=== PATIENT | male | born 1970 | race Caucasian/White ===

== ENCOUNTER 2016-06-06 15:06 | Emergency (ER) | payer OTHER ==
[~2016-06-06] VITALS: Ht 195.6 cm; Wt 136.1 kg
[2016-06-06 15:45] VITALS: BP 126/84
== END 2016-06-06 16:49 | disposition left against medical advice (07) ==
LOC: ER 15:08
DX: Z53.21 Procedure and treatment not carried out due to patient leaving prior to being seen by health care provider (principal)
CPT/HCPCS: A4606; Z7610

== ENCOUNTER 2019-05-20 20:42 | Emergency (ER) | payer OTHER ==
[~2019-05-20] VITALS: Ht 195.6 cm; Wt 127.0 kg
--- NOTE | 2019-05-20 20:45 | NUR ---
[id number]. ALCOHOL WITHDRAWAL-TREMORS, ANXIOUS, SOB, CHEST TIGHTNESS ABD PAIN BURNING SENSATION. LAST ALCOHOL USE WEDNESDAY EVENING, PT AWAKE, ALERT, -SOB, NAD NOTED, PLACEDO N MONITOR, VSS, SANDRO DE LA TORRE
[2019-05-20] MEDS: IPRATROPIUM NEB FS 0.5 MG/2.5 ML AMPUL.NEB NEB ONE (21:19)
[2019-05-20] MEDS: ALBUTEROL FS 2.5 MG/3 ML VIAL.NEB NEB ONE (21:20)
[2019-05-20] MEDS ORDERED: ALBUTEROL FS 2.5 MG/3 ML VIAL.NEB ONE (21:23)
[2019-05-20] MEDS ORDERED: IPRATROPIUM NEB FS 0.5 MG/2.5 ML AMPUL.NEB ONE (21:23)
[2019-05-20] MEDS ORDERED: LIDOCAINE VISCOUS 2% UD 15 ML UDC ONE (21:30)
[2019-05-20] MEDS ORDERED: MAG HYDROX/AL HYDROX/SIMETH 30 ML UDC ONE (21:30)
[2019-05-20 21:31] LABS: BASOPHILS % (AUTO) 0.7 % (0.0-2.0); EOSINOPHILS % (AUTO) 0.3 % (0.0-6.0); HEMATOCRIT 41 % (39-51); HEMOGLOBIN 13.6 g/dL (13.5-17.5); LYMPHOCYTES # (AUTO) 1.5 /CMM (0.8-4.8); LYMPHOCYTES % (AUTO) 23.1 % (20.0-44.0); MEAN CORPUSCULAR HGB CONC 33 g/dl (31.0-36.0); MEAN CORPUSCULAR VOLUME 91 fL (80-96); MONOCYTES # (AUTO) 0.6 /CMM (0.1-1.30); MONOCYTES % (AUTO) 9.8 % (2.0-12.0); NEUTROPHILS # (AUTO) 4.2 /CMM (1.8-8.9); NEUTROPHILS % (AUTO) 66.1 % (43.0-81.0); PLATELET COUNT (AUTO) 255 /CMM (150-450); RED BLOOD CELL COUNT(AUTO) 4.47 MIL/uL (4.5-6.0); WHITE BLOOD COUNT (AUTO) 6.3 K/uL (4.3-11.0)
[2019-05-20] MEDS ORDERED: predniSONE 20 MG TABLET ONE (21:31)
[2019-05-20 21:38] LABS: CALCIUM, SERUM 9.6 mg/dL (8.5-10.1); CARBON DIOXIDE 29 mmol/L (21-32); CHLORIDE 99 mmol/L (98-107); CREATININE 0.9 mg/dL (0.6-1.3); GLUCOSE 110 mg/dL (74-106); POTASSIUM 3.9 mmol/L (3.5-5.1); SODIUM SERUM 139 mmol/L (136-145); UREA NITROGEN, BLOOD 6 mg/dL (7-18)
[2019-05-20 21:44] LABS: ALANINE AMINOTRANSFERASE 72 U/L (12-78); ALBUMIN 4.2 g/dL (3.4-5.0); ALKALINE PHOSPHATASE 86 U/L (46-116); ASPARTATE AMINOTRANSFERASE 56 U/L (15-37); BILIRUBIN,DIRECT 0.5 mg/dL (0.0-0.2); BILIRUBIN,TOTAL 2.2 mg/dL (0.2-1.0); TOTAL PROTEIN, SERUM 7.5 g/dL (6.4-8.2)
[2019-05-20] MEDS: LIDOCAINE VISCOUS 2% UD 15 ML UDC MM ONE (21:45)
[2019-05-20] MEDS: MAG HYDROX/AL HYDROX/SIMETH 30 ML UDC PO ONE (21:45)
[2019-05-20] MEDS: predniSONE 20 MG TABLET PO ONE (21:45)
[2019-05-20] MEDS ORDERED: LORAZEPAM 1 MG TABLET ONE (21:46)
[2019-05-20] MEDS: LORAZEPAM 1 MG TABLET PO ONE (21:49)
--- NOTE | 2019-05-20 22:55 | NUR ---
DOMINICK (MOTHER) CONTACT INFORMATION: [phone], WILL TECHNICAL SERVICES CONSULTANT PATIENT WHEN DISCHARGED
[2019-05-20 23:52] VITALS: BP 143/88
--- NOTE | 2019-05-21 00:16 | NUR ---
Patient discharged to home in stable condition. Written and verbal after care instructions given. Patient verbalizes understanding of instruction. IV removed. Catheter intact and site benign. Pressure and 4x4 applied to site. No bleeding noted.
== END 2019-05-21 00:41 | disposition home or self-care (01) ==
LOC: ER 20:43
DX: F10.239 Alcohol dependence with withdrawal, unspecified (principal); J44.1 Chronic obstructive pulmonary disease with (acute) exacerbation; F17.200 Nicotine dependence, unspecified, uncomplicated; Y90.9 Presence of alcohol in blood, level not specified
CPT/HCPCS: 36415; 71045-TC; 80048-TC; 80076-TC; 83690-TC; 84484-TC; 85025-TC

== ENCOUNTER 2020-07-23 09:00 | Emergency (ER) | payer OTHER ==
[~2020-07-23] VITALS: Ht 195.6 cm; Wt 141.1 kg
--- NOTE | 2020-07-23 09:10 | NUR ---
The patient bibs for c/o headache, nausea x few days s/p glf/ head injury. The patient admits to etoh use. Rates headache 5/10. In room air and denies sob. Respiration regular and unlabored. Warm blanket provided for comfort. Attached on a monitor. Will continue to monitor the patient.
[2020-07-23] MEDS ORDERED: ONDANSETRON HCL/PF 4 MG/2 ML VIAL ONE (09:21)
--- NOTE | 2020-07-23 09:27 | NUR ---
ZOFRAN 4 MG GIVEN IV INSTEAD OF PO PER DR WALLACE.
[2020-07-23] MEDS ORDERED: ONDANSETRON 4 MG TAB.RAPDIS PO ONE (09:30)
[2020-07-23] MEDS ORDERED: IV NS 0.9% 1,000 ML BAG IV ONE (09:30)
[2020-07-23 09:31] LABS: BASOPHILS % (AUTO) 0.7 % (0.0-2.0); EOSINOPHILS % (AUTO) 2.4 % (0.0-6.0); HEMATOCRIT 47 % (39-51); HEMOGLOBIN 15.7 g/dL (13.5-17.5); LYMPHOCYTES # (AUTO) 1.8 /CMM (0.8-4.8); LYMPHOCYTES % (AUTO) 28.4 % (20.0-44.0); MEAN CORPUSCULAR HGB CONC 33 g/dl (31.0-36.0); MEAN CORPUSCULAR VOLUME 96 fL (80-96); MONOCYTES # (AUTO) 0.5 /CMM (0.1-1.30); MONOCYTES % (AUTO) 7.2 % (2.0-12.0); NEUTROPHILS # (AUTO) 3.9 /CMM (1.8-8.9); NEUTROPHILS % (AUTO) 61.3 % (43.0-81.0); PLATELET COUNT (AUTO) 240 /CMM (150-450); RED BLOOD CELL COUNT(AUTO) 4.94 MIL/uL (4.5-6.0); WHITE BLOOD COUNT (AUTO) 6.4 K/uL (4.3-11.0)
--- NOTE | 2020-07-23 09:40 | NUR ---
patient wheeled to ct
--- NOTE | 2020-07-23 09:48 | NUR ---
patient came back from ct
--- NOTE | 2020-07-23 09:54 | NUR ---
called RT for breathing Tx.
[2020-07-23] MEDS ORDERED: ALBUTEROL FS 2.5 MG/3 ML VIAL.NEB ONE (09:59)
[2020-07-23 10:00] LABS: CALCIUM, SERUM 9.5 mg/dL (8.5-10.1); CREATININE 0.9 mg/dL (0.6-1.3); POTASSIUM 3.8 mmol/L (3.5-5.1)
[2020-07-23] MEDS ORDERED: ALBUTEROL FS 2.5 MG/3 ML VIAL.NEB NEB ONE (10:00)
--- NOTE | 2020-07-23 10:01 | NUR ---
RT at bedside for Tx.
[2020-07-23 10:06] LABS: ALBUMIN 3.9 g/dL (3.4-5.0); BILIRUBIN,DIRECT 0.5 mg/dL (0.0-0.2); BILIRUBIN,TOTAL 2.9 mg/dL (0.2-1.0); TOTAL PROTEIN, SERUM 7.8 g/dL (6.4-8.2)
[2020-07-23] MEDS ORDERED: KETOROLAC TROMETHAMINE 15 MG/ML VIAL ONE (10:49)
[2020-07-23] MEDS ORDERED: KETOROLAC TROMETHAMINE INJ 30 MG/ML VIAL IV ONE (11:00)
[2020-07-23] MEDS ORDERED: LORA-259 PO (11:04)
[2020-07-23] MEDS ORDERED: IPRA12.9 INH (11:04)
--- NOTE | 2020-07-23 11:34 | NUR ---
Patient discharged to home in stable condition. Written and verbal after care instructions given. Patient verbalizes understanding of instruction. patient left er in stable condition.
[2020-07-23 11:36] VITALS: BP 136/78
== END 2020-07-23 11:36 | disposition home or self-care (01) ==
LOC: ER 09:00
DX: S00.01XA Abrasion of scalp, initial encounter (principal); S09.8XXA Other specified injuries of head, initial encounter; F10.20 Alcohol dependence, uncomplicated; E80.7 Disorder of bilirubin metabolism, unspecified; R42 Dizziness and giddiness; J45.909 Unspecified asthma, uncomplicated; F17.200 Nicotine dependence, unspecified, uncomplicated; Y90.9 Presence of alcohol in blood, level not specified; Z79.899 Other long term (current) drug therapy; W18.09XA Striking against other object with subsequent fall, initial encounter; Y93.89 Activity, other specified; Y92.89 Other specified places as the place of occurrence of the external cause; Y99.8 Other external cause status
CPT/HCPCS: 36415; 70450; 80048; 80076; 85025; 94640; 96361; 96374; 99285; J1885; J2405; J7030

== ENCOUNTER 2021-04-15 21:55 | Emergency (ER) | payer OTHER ==
[~2021-04-15] VITALS: Ht 188 cm; Wt 95.3 kg
[~2021-04-15 21:55] MED LIST: IPRA12.9 INH; LORA-259 PO
[2021-04-15] MEDS ORDERED: ONDANSETRON HCL/PF 4 MG/2 ML VIAL ONE (22:27)
[2021-04-15] MEDS ORDERED: LORAZEPAM INJ 2 MG/ML VIAL ONE (22:27)
--- NOTE | 2021-04-15 22:27 | NUR ---
PT BIBRA C/O "ALCOHOL WITHDRAWALS" AND LEFT SIDED ABD PAIN WITH N/V/D. PT AAOX4 BREATHING EVENLY AND UNLABORED. PER PT, LAST DRINK WAS 18HRS AGO. UPON ASSESSMENT, PT HAS TREMORS IN HANDS. MD AT BEDSIDE. PT ATTACHED TO MONITOR AND POX. GIVEN BLANKET AND CALL LIGHT WITHIN REACH
[2021-04-15] MEDS: ONDANSETRON HCL/PF 4 MG/2 ML VIAL IVP ONE (22:30)
[2021-04-15] MEDS: LORAZEPAM INJ 2 MG/ML VIAL IV ONE (22:30)
[2021-04-15] MEDS: IV NS 0.9% 1,000 ML BAG IV ONE (22:30)
--- NOTE | 2021-04-15 22:30 | NUR ---
taken to radiology
[2021-04-15 22:51] LABS: BASOPHILS # (AUTO) 0.1 K/uL (0.0-0.2); BASOPHILS % (AUTO) 1.1 % (0.0-2.0); EOSINOPHILS % (AUTO) 0.7 % (0.0-6.0); HEMATOCRIT 44 % (39-51); HEMOGLOBIN 15.2 g/dL (13.5-17.5); LYMPHOCYTES # (AUTO) 1.5 K/uL (0.8-4.8); LYMPHOCYTES % (AUTO) 21.8 % (20.0-44.0); MEAN CORPUSCULAR HGB CONC 35 g/dl (31.0-36.0); MEAN CORPUSCULAR VOLUME 93 fL (80-96); MONOCYTES # (AUTO) 0.5 K/uL (0.1-1.30); MONOCYTES % (AUTO) 7.6 % (2.0-12.0); NEUTROPHILS # (AUTO) 4.9 K/uL (1.8-8.9); NEUTROPHILS % (AUTO) 68.8 % (43.0-81.0); PLATELET COUNT (AUTO) 196 K/uL (150-450); WHITE BLOOD COUNT (AUTO) 7.1 K/uL (4.3-11.0)
[2021-04-15 23:10] LABS: BILIRUBIN,URINE SMALL (NEGATIVE); COLOR,URINE AMBER (YELLOW); LEUKOCYTE ESTERASE ,URINE TRACE (NEGATIVE); NITRITE, URINE POSITIVE (NEGATIVE); PH,URINE 7.5 (5.0-8.0); PROTEIN,URINE 100 mg/dl (NEGATIVE); UGLUCOSE NEGATIVE (NEGATIVE)
[2021-04-15 23:12] LABS: ALBUMIN 3.9 g/dL (3.4-5.0); BILIRUBIN,DIRECT 0.5 mg/dL (0.0-0.2); BILIRUBIN,TOTAL 2.7 mg/dL (0.2-1.0); CALCIUM, SERUM 9.4 mg/dL (8.5-10.1); POTASSIUM 3.8 mmol/L (3.5-5.1); TOTAL PROTEIN, SERUM 7.9 g/dL (6.4-8.2)
--- NOTE | 2021-04-15 23:22 | NUR ---
TAKEN TO CT
[2021-04-15] MEDS ORDERED: ONDA4TAB5 PO (23:34)
[2021-04-15] MEDS ORDERED: CHLO1CAP32 PO (23:34)
[2021-04-15] MEDS ORDERED: CIPR500T5 PO (23:41)
--- NOTE | 2021-04-15 23:43 | NUR ---
Patient discharged to home in stable condition. Written and verbal after care instructions given. Patient verbalizes understanding of instruction. IV removed. Catheter intact and site benign. Pressure and 4x4 applied to site. No bleeding noted. PT ambulatory with a steady gait
[2021-04-15 23:49] VITALS: BP 145/90
[2021-04-16 15:17] LABS: BACTERIA,URINE 2+ /HPF (None Seen); SQUAMOUS EPITHELIAL CELL,UR 1+ /HPF (None Seen); URINE AMORPHOUS URATE Many /HPF (None Seen)
== END 2021-04-15 23:43 | disposition home or self-care (01) ==
LOC: ER 21:57
DX: N39.0 Urinary tract infection, site not specified (principal); F10.239 Alcohol dependence with withdrawal, unspecified; K70.0 Alcoholic fatty liver; R10.12 Left upper quadrant pain; J45.909 Unspecified asthma, uncomplicated; Z79.52 Long term (current) use of systemic steroids; Z79.51 Long term (current) use of inhaled steroids; Y90.0 Blood alcohol level of less than 20 mg/100 ml
CPT/HCPCS: 36415; 74176; 80048; 80076; 80307; 80320; 81001; 83690; 85025; 87086; 87186; 93005; 96361; 96374; 96375; 99285; J2060; J2405; J7030; G0480

== ENCOUNTER 2022-02-21 12:27 | Emergency (ER) | payer OTHER ==
[~2022-02-21] VITALS: Ht 195.6 cm; Wt 113.4 kg
[~2022-02-21 12:27] MED LIST changes: +CHLO1CAP32 PO; +CIPR500T5 PO; +ONDA4TAB5 PO
--- NOTE | 2022-02-21 12:50 | NUR ---
BIBS C/O TREMORS, ABDOMINAL DISCOMFORT, "THROWING UP ALL NIGHT" SINCE YESTERDAY LAST ALCOHOL INTAKE 2 DAYS AGO. AMBULATORY, PLACED ON BED, AAOX4, BREATHING EVEN AND UNLABORED.
--- NOTE | 2022-02-21 13:09 | NUR ---
PATIENT TAKEN TO CT VIA RITA
--- NOTE | 2022-02-21 13:29 | NUR ---
BLOOD DRAWN AND SENT TO LAB
[2022-02-21] MEDS ORDERED: IV NS 0.9% 1,000 ML BAG IV ONE (13:30)
[2022-02-21 13:47] LABS: BASOPHILS % (AUTO) 0.8 % (0.0-2.0); EOSINOPHILS % (AUTO) 1.4 % (0.0-6.0); HEMATOCRIT 44 % (39-51); HEMOGLOBIN 14.5 g/dL (13.5-17.5); LYMPHOCYTES # (AUTO) 1.2 K/uL (0.8-4.8); LYMPHOCYTES % (AUTO) 21.9 % (20.0-44.0); MEAN CORPUSCULAR HGB CONC 33 g/dl (31.0-36.0); MEAN CORPUSCULAR VOLUME 93 fL (80-96); MONOCYTES # (AUTO) 0.3 K/uL (0.1-1.30); MONOCYTES % (AUTO) 6.1 % (2.0-12.0); NEUTROPHILS % (AUTO) 69.8 % (43.0-81.0); PLATELET COUNT (AUTO) 139 K/uL (150-450); RED BLOOD CELL COUNT(AUTO) 4.75 MIL/uL (4.5-6.0); WHITE BLOOD COUNT (AUTO) 5.7 K/uL (4.3-11.0)
[2022-02-21 14:07] LABS: BILIRUBIN,DIRECT 0.7 mg/dL (0.0-0.2); BILIRUBIN,TOTAL 5.5 mg/dL (0.2-1.0); CALCIUM, SERUM 9.5 mg/dL (8.5-10.1); CREATININE 0.8 mg/dL (0.6-1.3); POTASSIUM 3.6 mmol/L (3.5-5.1)
[2022-02-21] MEDS ORDERED: LORAZEPAM 1 MG TABLET PO ONE (15:30)
--- NOTE | 2022-02-21 15:31 | NUR ---
URINE COLLECTED AND SENT TO LAB
[2022-02-21] MEDS ORDERED: LORAZEPAM 1 MG TABLET ONE (15:39)
[2022-02-21] MEDS ORDERED: CHLO25CA22 PO (16:13)
[2022-02-21 16:28] VITALS: BP 138/60
--- NOTE | 2022-02-21 16:28 | NUR ---
IV removed. Catheter intact and site benign. Pressure and 4x4 applied to site. No bleeding noted.Patient discharged to home in stable condition. Written and verbal after care instructions given. Patient verbalizes understanding of instruction.
[2022-02-21 16:31] LABS: BILIRUBIN,URINE 2+ (NEGATIVE); COLOR,URINE DARK YELLOW (YELLOW); LEUKOCYTE ESTERASE ,URINE NEGATIVE (NEGATIVE); NITRITE, URINE NEGATIVE (NEGATIVE); PROTEIN,URINE NEGATIVE (NEGATIVE); UGLUCOSE NEGATIVE (NEGATIVE)
[2022-02-21 17:11] LABS: BACTERIA,URINE None seen /HPF (None Seen); RBC,URINE 0-2 /HPF (0-2); SQUAMOUS EPITHELIAL CELL,UR Few /HPF (None Seen); WBC,URINE 0-2 /HPF (0-3)
== END 2022-02-21 16:29 | disposition home or self-care (01) ==
LOC: ER 12:36
DX: F10.20 Alcohol dependence, uncomplicated (principal); R17 Unspecified jaundice; J45.909 Unspecified asthma, uncomplicated; F17.200 Nicotine dependence, unspecified, uncomplicated
CPT/HCPCS: 36415; 80048-TC; 80076-TC; 81001; 83690-TC; 85025-TC; 85730-TC

== ENCOUNTER 2022-05-19 10:33 | Emergency (ER) | payer OTHER ==
[~2022-05-19] VITALS: Ht 195.6 cm; Wt 127.0 kg
[2022-05-19 10:33] VITALS: BP 124/63
[~2022-05-19 10:33] MED LIST changes: +CHLO25CA22 PO
--- NOTE | 2022-05-19 10:33 | NUR ---
TO ER CHAIR 1. BIBS C/O L ANKLE PAIN S/P GLF FALL OUTSIDE OF HIS HOUSE THIS MORNING -KO, DENIES HITTING HIS HEAD, PAIN 10/10 ON PAIN SCALE. AWAITING MD DE LA TORRE.
[2022-05-19] MEDS ORDERED: IBUPROFEN 400 MG TABLET PO ONE (11:00)
[2022-05-19] MEDS ORDERED: IBUPROFEN 400 MG TABLET ONE (11:04)
[2022-05-19] MEDS ORDERED: oxyCODONE/APAP (5/325 MG) 1 UDTAB TABLET PO ONE (12:00)
[2022-05-19] MEDS ORDERED: oxyCODONE/APAP (5/325 MG) 1 UDTAB TABLET ONE (12:02)
--- NOTE | 2022-05-19 12:43 | NUR ---
PT WAS DISCHARGED WAS ASKED WHY HIS ANKLE WAS NOT WRAPPED, EXPLAINED THAT HE DID NOT HAVE A FRACTURE OR DISLOCATION SO IT WAS NOT INDICATED, OFFERED TO NAOMI WRAP HIS ANKLE. PT LEFT THE FACILTY AND STATED THAT HE DID NOT WANT TO HAVE IT WRAPPED AND WAS UNHAPPY. PT LEFT WALKING WITH HIS CANE FROM HOME.
== END 2022-05-19 12:46 | disposition home or self-care (01) ==
LOC: ER 10:34
DX: M25.572 Pain in left ankle and joints of left foot (principal); J45.909 Unspecified asthma, uncomplicated; F17.200 Nicotine dependence, unspecified, uncomplicated; Z79.899 Other long term (current) drug therapy
CPT/HCPCS: 73610-TC

== ENCOUNTER 2022-06-02 14:10 | Emergency (ER) | payer OTHER ==
[~2022-06-02] VITALS: Ht 195.6 cm; Wt 113.4 kg
--- NOTE | 2022-06-02 14:45 | NUR ---
[id number] C/O RIGHT ANKLE PAIN X 5 DAYS. PT DENIES TRAUMA TO AREA. PLACED IN BED, AAOX4, BREATHING UNLABORED.
--- NOTE | 2022-06-02 15:00 | NUR ---
RONAK U/S TECH AT BEDSIDE
[2022-06-02] MEDS ORDERED: CEPH500C2 PO (15:31)
--- NOTE | 2022-06-02 15:55 | NUR ---
Patient discharged to home in stable condition. Written and verbal after care instructions given. Patient verbalizes understanding of instruction. CRUTCHES PROVIDED.
[2022-06-02 16:45] VITALS: BP 125/65
== END 2022-06-02 15:55 | disposition home or self-care (01) ==
LOC: ER 14:15
DX: M79.89 Other specified soft tissue disorders (principal); M79.662 Pain in left lower leg; M79.661 Pain in right lower leg; J45.909 Unspecified asthma, uncomplicated; F17.200 Nicotine dependence, unspecified, uncomplicated; Z79.899 Other long term (current) drug therapy
CPT/HCPCS: 93970-TC

== ENCOUNTER 2022-07-07 10:01 | Emergency (ER) | payer OTHER ==
[~2022-07-07] VITALS: Ht 195.6 cm; Wt 124.7 kg
[~2022-07-07 10:01] MED LIST changes: +CEPH500C2 PO
--- NOTE | 2022-07-07 12:00 | NUR ---
BIBS FOR RIGHT ANKLE FRACTURE. A/O X 3, ABLE TO MAKE NEEDS KNOWN. TOLERATING WELL ON ROOM AIR.
[2022-07-07] MEDS ORDERED: IBUP-1955 PO (12:52)
--- NOTE | 2022-07-07 13:37 | NUR ---
Patient discharged to home in stable condition. Written and verbal after care instructions given. Patient verbalizes understanding of instruction. Discharged with crutches and medication prescription.
[2022-07-07 13:39] VITALS: BP 139/72
== END 2022-07-07 13:39 | disposition home or self-care (01) ==
LOC: ER 10:08
DX: S82.841G Displaced bimalleolar fracture of right lower leg, subsequent encounter for closed fracture with delayed healing (principal); I87.1 Compression of vein; J45.909 Unspecified asthma, uncomplicated; F17.200 Nicotine dependence, unspecified, uncomplicated; Z79.899 Other long term (current) drug therapy; W50.2XXD Accidental twist by another person, subsequent encounter
CPT/HCPCS: 73610-TC; 93971-TC

== ENCOUNTER → 2023-07-03 | Emergency (ER) | payer OTHER ==
[~2023-07-03] VITALS: Ht 195.6 cm; Wt 117.9 kg
[~2023-07-03] MED LIST changes: +ACET-868 PO; +ALBUTEROL FS 2.5 MG/3 ML VIAL.NEB ONE; +BISM262O64 PO; +EPIN11.7 IH; +IBUP-1955 PO; +IPRATROPIUM NEB FS 0.5 MG/2.5 ML AMPUL.NEB ONE
[2023-07-03 14:20] LABS: BASOPHILS # (AUTO) 0.1 K/uL (0.0-0.2); BASOPHILS % (AUTO) 1.1 % (0.0-2.0); EOSINOPHILS # (AUTO) 0.4 K/uL (0.0-0.7); EOSINOPHILS % (AUTO) 4.3 % (0.0-6.0); HEMATOCRIT 32 % (39-51); HEMOGLOBIN 10.7 g/dL (13.5-17.5); LYMPHOCYTES # (AUTO) 1.4 K/uL (0.8-4.8); LYMPHOCYTES % (AUTO) 17.1 % (20.0-44.0); MEAN CORPUSCULAR HEMOGLOBIN 34 PG (26.0-33.0); MEAN CORPUSCULAR HGB CONC 34 g/dl (31.0-36.0); MEAN CORPUSCULAR VOLUME 102 fL (80-96); MONOCYTES # (AUTO) 0.7 K/uL (0.1-1.30); MONOCYTES % (AUTO) 7.9 % (2.0-12.0); NEUTROPHILS # (AUTO) 5.8 K/uL (1.8-8.9); NEUTROPHILS % (AUTO) 69.6 % (43.0-81.0); PLATELET COUNT (AUTO) 104 K/uL (150-450); RED BLOOD CELL COUNT(AUTO) 3.12 MIL/uL (4.5-6.0); RED CELL DISTRIBUTION WIDTH 19.3 % (11.5-15.0); WHITE BLOOD COUNT (AUTO) 8.3 K/uL (4.3-11.0)
[2023-07-03 14:49] LABS: INR 1.37 (0.91-1.10); PROTHROMBIN TIME 14.2 SECS (9.2-11.1)
[2023-07-03 15:37] LABS: APPEARANCE,URINE SLIGHTLY CLOUDY (CLEAR); BILIRUBIN,URINE 2+ (NEGATIVE); BLOOD, URINE NEGATIVE Ery/uL (NEGATIVE); COLOR,URINE DARK YELLOW (YELLOW); KETONES,URINE TRACE mg/dL (NEGATIVE); LEUKOCYTE ESTERASE ,URINE NEGATIVE (NEGATIVE); NITRITE, URINE POSITIVE (NEGATIVE); PH,URINE 5.5 (5.0-8.0); PROTEIN,URINE 1+ mg/dl (NEGATIVE); UGLUCOSE NEGATIVE (NEGATIVE)
[2023-07-03 15:40] LABS: ALBUMIN 2.4 g/dL (3.4-5.0); BILIRUBIN,DIRECT 2.4 mg/dL (0.0-0.2); BILIRUBIN,TOTAL 5.6 mg/dL (0.2-1.0); CALCIUM, SERUM 8.3 mg/dL (8.5-10.1); CREATININE 0.7 mg/dL (0.6-1.3); POTASSIUM 4.5 mmol/L (3.5-5.1)
[2023-07-03 16:23] LABS: ADD URINE CULTURE YES; BACTERIA,URINE RARE /HPF (None Seen); MUCUS,URINE Moderate /LPF (None Seen); RBC,URINE 0-2 /HPF (0-2); SQUAMOUS EPITHELIAL CELL,UR 0-2 /HPF (None Seen); WBC,URINE 0-2 /HPF (0-3)
[2023-07-03] MEDS: ALBUTEROL FS 2.5 MG/3 ML VIAL.NEB NEB ONE (18:53)
[2023-07-03] MEDS: IPRATROPIUM NEB FS 0.5 MG/2.5 ML AMPUL.NEB NEB ONE (18:53)
[2023-07-03 19:02] VITALS: O2SAT 95
[2023-07-03 19:12] VITALS: O2SAT 100
[2023-07-03 19:21] VITALS: BP 141/82; TEMP 98.3; O2SAT 99
== END | disposition short-term general hospital (02) ==
LOC: ER 13:22
DX: K74.60 Unspecified cirrhosis of liver (principal); J45.909 Unspecified asthma, uncomplicated; Z91.013 Allergy to seafood
CPT/HCPCS: 36415; 71045-TC; 76700-TC; 80048-TC; 80076-TC; 81001; 82140-TC; 83690-TC; 85025-TC; 85730-TC; 87086-TC; 94799-TC